=== PATIENT | female | born 1990 | race Caucasian/White ===

== ENCOUNTER 2019-08-19 19:37 | Emergency (ER) | payer BC, SELFPAY ==
[2019-08-19] VITALS (9 sets, daily range): BP systolic 101–112; BP diastolic 69–78; PULSE 104–135; RESP 18–20; TEMP 37.5–38.4; O2SAT 97–100; BMI 31.3
[2019-08-19] MEDS: acetaminophen 325 mg Tablet 650 MG PO (21:55)
[2019-08-19 22:34] LABS: Influenza A by IFA Negative (Negative); Influenza B by IFA Positive (Negative)
--- NOTE | 2019-08-19 22:39 | XRR_ITS ---
PROCEDURE INFORMATION: Exam: XR Chest, 1 View Exam date and time: 08/19/2019 10:39 PM Age: 28 years old Clinical indication: Cough and fever and shortness of breath; Additional info: Cough fever TECHNIQUE: Imaging protocol: XR of the chest Views: 1 view. COMPARISON: No relevant prior studies available. FINDINGS: Lungs: Tiny calcified granulomas. The lungs are otherwise clear. Pleural space: Unremarkable. No pleural effusion. No pneumothorax. Heart/Mediastinum: Unremarkable. No cardiomegaly. Bones/joints: Unremarkable. XR/XR chest 1V portable [id number] IMPRESSION: No acute findings.
--- NOTE | 2019-08-19 22:39 | ED_ITS ---
HPI - General Adult General: Chief complaint: General Medical Stated complaint: fever Time Seen by Provider: 08/19/19 22:34 Source: patient Mode of arrival: ambulatory Limitations: no limitations History of Present Illness: HPI narrative: Patient comes in today with complaints of fever and headache for the last 2 days. Children have also been ill with the flu type B. Patient did get started on Tamiflu today with 1 dose. Patient appears mildly ill. Patient appears in no pain. Associated symptoms: Reports headache(s) Review of Systems General: Reports: 10 or more systems reviewed and unremarkable except in HPI and below Const: Reports: fever Neuro: Reports: headache PFSH ED PFSH: Statuses (acute, chronic, etc) shown below reflect problem list status as previously entered and may not be historically accurate Social History (Updated 07/29/19 @ 14:39 by Shakira Millard RN) Smoking and tobacco status: never smoked Alcohol intake: never Additional social history: Well balanced diet Physical Exam Const: COMMON NORMALS: no apparent distress and oriented x3 GENERAL APPEARANCE: cooperative HENMT: COMMON NORMALS: normocephalic, external ears normal, EAC's normal, TM's normal bilaterally and external nose normal HEAD & SCALP: normal to inspection and normocephalic FACE & SINUS: normal facial exam NOSE: external nose normal GENERAL EAR: hearing not grossly impaired EXTERNAL EAR: Yes external ears normal EXTERNAL AUDITORY CANAL: EAC's normal TYMPANIC MEMBRANE: TM's normal bilaterally MOUTH: oral and palatal mucosa normal THROAT: posterior oropharynx normal Eye: COMMON NORMALS: PERRL and EOMs intact bilaterally PUPIL: Yes PERRL Neck/C-Spine: COMMON NORMALS: full ROM and no lymphadenopathy Lymph: LYMPHATIC: no lymphedema noted Chest: COMMONS NORMALS: inspection of chest normal and palpation of chest normal Resp: COMMON NORMALS: normal respiratory effort AUSCULTATION: diminished lung sounds Cardio: COMMON NORMALS: regular rate and regular rhythm RATE: regular rate RHYTHM: regular rhythm GI: COMMON NORMALS: normal to inspection, nondistended, normoactive bowel sounds and non-tender : COMMON NORMALS: Yes no CVA tenderness BLADDER/KIDNEY EXAM: Yes no CVA tenderness Back/Pelvis: COMMON NORMALS: no CVA tenderness and thoracic and lumbar spine normal to inspection Extremity: COMMON NORMALS: normal to inspection GENERAL: No edema Neuro: COMMON NORMALS: oriented x3, moves all extremities and no focal motor deficits Psych: COMMON NORMALS: mental status grossly normal and cooperative Skin: COMMON NORMALS: no rashes or lesions noted GENERAL SKIN EXAM: no rashes or lesions noted Course Vital Signs: Vital signs: Vital Signs Temperature 99.5 F 08/19/19 23:09 Pulse Rate 104 H 08/19/19 23:09 Respiratory Rate 20 H 08/19/19 23:09 Blood Pressure 101/69 08/19/19 23:09 Pulse Oximetry 97 08/19/19 23:09 MDM - General Adult MDM Narrative: Medical decision making narrative: Patient comes in due to fever and headache with malaise. Patient has been exposed to influenza type B with her children. Exam notes mild tachycardia and a fever of 101.2. Respirations were even lungs were clear to auscultation abdomen soft nontender. Patient did report episode of nausea and vomiting x1. Differential diagnoses influenza type B, upper respiratory infection, gastroenteritis, pneumonia. Chest x-ray was negative. Flu test was positive for type B flu. Further discussion with patient realized that Tamiflu she had taken and then she started vomiting after the use of the Tamiflu. Discussed that the Tamiflu probably was causing the adverse reaction of nausea and vomiting. Patient was medicated with ondansetron to help with her nausea and vomiting. Patient was also given a dose of dexamethasone to help with her cough and nausea. Patient reports underst anding of care plan can continue Tamiflu at her discretion with strong recommendations for fluids Tylenol and ibuprofen. Lab Data: Labs: Lab Results 08/19/19 Range/Units 21:56 Influenza Type A A g Negative (Negative) POC Influenza B Ag Positive H (Negative) Discharge Plan Discharge Patient Disposition: Home, Self-Care Clinical Impression: Influenza Condition: Stable Prescriptions: New ondansetron 4 mg tablet,disintegrating 4 mg PO Q8H PRN (Reason: nausea and vomiting) Qty: 10 RF: 0 Discharge Orders: Discharge Order (Routine); Ordered 08/19/19 Ordered By: Geraldo Lopez Referrals: [facility] [Other] Reyna Kerr [Primary Care Provider] - Discharge Diet: Advance as tolerated Discharge Activity: Increase activity as tolerated Patient Instructions: Influenza (ED) Activity Restrictions/Additional Instructions: Encourage plenty of fluids Acetaminophen and ibuprofen for pain and fever Continue Tamiflu as directed Use ondansetron for nausea and vomiting Follow-up with primary care Return to ER as needed Discharge Date/Time: 08/19/19 23:14 Coding Level of Care Code ED Stripper Color for Chg Fwd Exam Problem Focused
[2019-08-19] MEDS: dexamethasone 10 mg/mL INJ IM (23:04)
[2019-08-19] MEDS: ondansetron 4 MG Tablet PO (23:06)
== END 2019-08-19 23:14 | disposition home or self-care (01) ==
PROVIDERS: Emergency Provider Nurse Practitioner Family; PCP Nurse Practitioner Family
DX: J11.1 Influenza due to unidentified influenza virus with other respiratory manifestations (principal)
CPT/HCPCS: 71045; 87804; 96372; 99281; 99284; J1100; Q0162

== ENCOUNTER 2019-12-21 10:28 | Observation (INO) | payer BC, SELFPAY ==
[2019-12-19 10:32] VITALS: BMI 30.1
[2019-12-21] VITALS (19 sets, daily range): BP systolic 90–133; BP diastolic 58–89; PULSE 78–105; RESP 16–21; TEMP 36.2–36.9; O2SAT 93–100
--- NOTE | 2019-12-21 07:13 | W.PM.OPSUD ---
Surgery/Procedure H&P Update DATE OF PROCEDURE: December 21, 2019 DATE H&P PERFORMED: 12/19/19 H&P UPDATE INFORMATION: I have reviewed H&P completed within last 30 days, I have examined patient prior to procedure and No changes to prior documentation PREOP DIAGNOSIS: Abnormal uterine bleeding unresponsive to medical management, dysmenorrhea PLANNED PROCEDURE: Operation Date: 12/21/19 08:45 Proposed Procedures p Laparoscopic Assist Vaginal Hystectomy 59321/N93.9(Not Applicable) - eGrber Acevedo MD
--- NOTE | 2019-12-21 07:43 | ANES.PREANE2 ---
Pre-Anesthetic Assessment Pre-Anesthetic Assessment: Height/Weight: Height 1.6 m Weight 77.111 kg Temp Pulse Resp BP Pulse Ox 97.2 F L 88 18 114/82 99 12/21/19 07:23 12/21/19 07:23 12/21/19 07:23 12/21/19 07:23 12/21/19 07:23 Preop Diagnosis: Abnormal uterine bleeding unresponsive to medical management, dysmenorrhea Proposed Procedure: Operation Date: 12/21/19 08:45 Proposed Procedures p Laparoscopic Assist Vaginal Hystectomy 27894/N93.9(Not Applicable) - Gerber Acevedo MD Familial anesthetic complications: None Last intake: Intake Last Liquid Date 12/20/19 Last Liquid Time 20:30 Last Solid Date 12/20/19 Last Solid Time 20:30 Social: Social History: No alcohol and No tobacco Exam: Pre-Anes Outpt Exam: alert, oriented x 3, clear to auscultation bilaterally and regular rate & rhythm Airway: Cervical ROM: WNL MP: 1 Dentition: Full Anesthetic Plan: ASA status: 1 Anesthesia: General Risk of > 500 ml blood loss (7ml/kg in children): No PFSH Anesthesia PFSH: Family History Grandmother Hyperlipidemia maternal Hypertension maternal Stroke maternal Father Heart disease Leukemia Grandfather Heart disease maternal Colon cancer maternal Social History Smoking and tobacco status: never smoked Alcohol intake: never Additional social history: Well balanced diet Female Reproductive History: Date of last menstrual period: 10/30/19 Para: 3 Spontaneous abortions: Yes (3) Data Anesthesia Cardiac Studies: No Data to Display
[2019-12-21] MEDS: sodium chloride 0.9% 1,000 ML 30 ML IV (08:00)
[2019-12-21 08:19] LABS: Basophils % 0.4 %; Eosinophils # 0.1 10^3/uL (0.0-0.8); Eosinophils % 1.5 %; Hematocrit 38.3 % (37.0-47.0); Hemoglobin 12.6 g/dL (11.5-15.3); Lymphocytes # 1.9 10^3/uL (0.8-4.8); Lymphocytes % 20.2 %; Mean Corpuscular HGB Conc 32.9 g/dL (30.0-36.0); Mean Corpuscular Hemoglobin 27.3 pg (28.0-34.0); Mean Corpuscular Volume 82.9 fL (81-99); Mean Platelet Volume 9.7 fL (7.4-10.4); Monocytes # 0.6 10^3/uL (0.2-0.9); Monocytes % 5.7 %; Neutrophils # 6.9 10^3/uL (1.8-7.7); Neutrophils % 71.9 %; Nucleated Red Blood Cells % 0 %; Platelet Count 311 10^3/cmm (130-400); Red Blood Count 4.62 10^6/uL (4.1-5.3); Red Cell Distribution Width 12.8 % (12.1-15.1); White Blood Count 9.6 10^3/uL (4.0-10.0)
[2019-12-21 08:30] LABS: Add Urine Microscopic? YES; Bilirubin Urine Neg (NEGATIVE); Blood Urine 2+ (Negative); Glucose Urine UA Norm (Normal); Ketones Urine Negative (Negative); Leukocyte Esterase Urine Negative (Negative); Nitrate Urine Negative (Negative); Protein Urine Neg (Negative); Specific Gravity, Urine 1.025 (1.005-1.030); Urine Appearance Clear (CLEAR); Urine Color Yellow (Yellow); Urobilinogen Urine Norm (Negative)
[2019-12-21 08:31] LABS: Alanine Aminotransferase 20 U/L (0-33); Albumin Level 4.3 g/dL (3.5-5.2); Alkaline Phosphatase 77 IU/L (35-105); Anion Gap 16.9 (5-19); Aspartate Amino Transferase 20 U/L (0-32); Blood Urea Nitrogen 12 mg/dL (6-20); Calcium 9.4 mg/dL (8.5-10.5); Carbon Dioxide 24 mmol/L (22-29); Chloride 103 mmol/L (98-107); Globulin 2.9 g/dL (1.3-4.6); Glomerular Filtration Rate 84.8 mL/min (90-130); Glucose 119 mg/dL (65-115); Osmolality Calculated 287 mOsm/kg (285-295); Potassium 3.9 mmol/L (3.5-5.1); Sodium 140 mmol/L (136-145); Total Bilirubin 0.3 mg/dL (0.15-1.2); Total Protein 7.2 g/dL (6.6-8.7)
[2019-12-21 08:32] LABS: HCG Qualitative Urine. Negative (Negative)
[2019-12-21 08:35] LABS: Add Urine Culture? No; Bacteria Urine TRACE; Mucus Urine 2+; Squamous Epithelial Cell Urine 0-4 (0-5)
--- NOTE | 2019-12-21 10:22 | P.OP_ITS ---
Operative Report Date of procedure: December 21, 2019 Pre-op Diagnosis: Abnormal uterine bleeding unresponsive to medical management, dysmenorrhea Post-op diagnosis: same Procedure Done: Laparoscopic-assisted vaginal hysterectomy Specimens removed/disposition: Uterus Surgeon: Gerber Acevedo Anesthesia: General Estimated blood loss (mL): 200 IV fluids (mL): 900 Urine output (mL): 200 Condition: stable Disposition: PACU Brief History: 28-year-old female with abnormal uterine bleeding unresponsive to medical management and chronic pelvic pain Procedure: After discussing informed consent again, the patient was taken to the operating room where general anesthesia was administered. She was placed in the dorsal lithotomy position in low stirrups and prepped and draped in sterile fashion. Pre-Procedure Time-Out verifying the correct patient identity, correct procedure verified with consent, correct site and side, correct patient position, availability of correct implants and any special equipment or requirements was performed and acknowledge by the OR team. After the initial preparation, the procedure commenced at the vagina. With a Bookwalter vaginal retractor was place to visualize the cervix; the anterior and posterior lips of the cervix were separately grasped and clamped with edel tooth tenaculum. The cervix was then dilated to a #6 hegar dilator and a uterine manipulator within the uterine cavity for manipulation purposes being careful not to puncture the uterus. A Mcbride catheter was placed in the erika dder. Attention was then turned to the abdomen. The umbilical region was infiltrated with 0.5% Marcaine with epinephrine. Following infiltration with Marcaine, an intraumbilical incision was made and the Verres needle was gently advanced taking care to feel for the typical sensation of penetrating the peritoneum. With CO2 infiltration, an opening pressure of 5 mmHg was noted, and following this, a pneumoperitoneum of 15 mmHg was created. A 5 mm Optiview trocar was then passed through the same incision under direct visualization. Trocar was removed and the laparoscope was then inserted through the trocar sleeve. Visualization of the peritoneal cavity was then obtained and a brief inspection did not reveal any signs of complications from entry. Under direct observation, a second incision was made 3 cm above the symphysis pubis, and a 5 mm trocar and sleeve were admitted into the abdomen under direct, laparoscopic visualization, without complication. Once the placement of the ports was complete, the actual laparoscopic procedure began. Beginning on the right side and distally along the length of the fallopian tube, the mesosalpinx was exposed by lifting the tube/ovary up towards the anterior abdominal wall. The mesosalpinx was then sequentially, clamped, ligated, and cut using the ENSEAL device working alongside the length of the tube and towards the cornua. Once the level of the cornua was reached the tube was cut, removed through the port, and attention was then turned to the other side. The same process was repeated on the left, sequentially clamping, sealing/ligating, and cutting the mesosalpinx being sure to not injure the adjacent ovarian tissue or other surrounding structures. The round ligament was then clamped, sealed/ligated and cut with the ENSEAL device. Following this, the anterior leaf of the broad ligament was then taken down on the left side, dissecting down towards the peritoneal reflection at the base of the bladder and adjacent to the cervix. The same process was then repeated on the left side such that both sides met and the anterior leaflet had been appropriately skeletonized. To ensure excellent hemostasis prior to further manipulation, the pedicles of the cardinal ligament was then clamped sealed/ligated and divided on each side using the ENSEAL device. Attention was then turned to the vaginal aspect of the surgery. The Mcbride catheter was clamped. A Bookwalter vaginal retractor was placed in the vagina and the uterine manipulator was removed. The tenaculum was repositioned anteriorly and posteriorly. A circumferential incision was made at the cervical vaginal reflection using cautery. This was undermined first anteriorly and a colpotomy made without difficulty. This was then repeated posteriorly and a similar colpotomy made. Amanda retractors were then placed into each of these incisions. Beginning first on the patient's left, the uterosacral and cardinal ligament was clamped, sealed, divided, and suture ligated. Two bites were required to reach the previous dissection margin of the left side. The same process was then repeated on the patient's right hand side, at which point, the specimen was completely freed. Once the sutures had been placed and the pedicles secured, the uterus was removed transvaginally without difficulty. All pedicles were inspected and hemostasis was confirmed. The vaginal vault was then closed with a running locking Vicryl suture, securing first the posterior edge of the cuff followed by the anterior edge. Good hemostasis was obtained. Two [id number] sutures were then placed across the vaginal vault to close it. Once these had been tied off, all sutures were trimmed; a wet sponge was placed in the vagina to pack it off while attention was again turned back to the abdomen. All instruments were removed from the vagina at this time. Using the laparoscopic irrigation device, the abdomen was carefully irrigated and inspected to ensure complete hemostasis. She was given Indigo carmine IV. Once the entire abdomen was inspected, the water was suctioned and the instruments carefully removed. The ports were then removed under direct visualization being sure to note hemostasis of the port sites on removal. The incisions were then closed with interrupted Monocryl sutures and Dermabond. Then the Mcbride catheter was removed and cystoscope was inserted. The bladder was filled with sterile water. Complete evaluation of the bladder mucosa was performed noting no lacerations, dimpling, tears, bleeding of the mucosa or muscular layers. Both ureteral orifices were identified. Prompt excretion of urine from both ureteral orifices was noted. Cystoscope was withdrawn. The patient tolerated the procedure well, anesthesia reversed, and the patient was taken to the recovery room in stable condition. All sponges, instruments, and sharps were counted and correct x 3.
[2019-12-21] MEDS: fentaNYL 50 mcg/mL INJ 2mL IVP ×2 (10:46→10:51)
[2019-12-21] MEDS: dextrose 5%-lactated ringers 1,000 ML 125 ML IV ×3 (11:52→20:46)
[2019-12-21] MEDS: ketorolac 30 mg/mL INJ IVP ×3 (11:55→23:08)
[2019-12-21] MEDS: HYDROcodone-acetaminophen 5-325 mg Tablet PO ×2 (13:50→19:31)
[2019-12-21] MEDS: docusate sodium 100 mg Capsule PO (17:01)
--- NOTE | 2019-12-21 18:04 | PC.NURSE ---
Patient ambulated to restroom 3 times since I have acquired patient at 1515. She has set up in chair for dinner. Will continue to monitor. MALOU, KENNY
[2019-12-22 00:49] VITALS: BP 91/58; PULSE 84; RESP 18; TEMP 36.9; O2SAT 98
[2019-12-22] MEDS: HYDROcodone-acetaminophen 5-325 mg Tablet PO ×3 (01:04→10:54)
[2019-12-22 01:08] VITALS: BP 94/52
[2019-12-22] MEDS: dextrose 5%-lactated ringers 1,000 ML 125 ML IV (03:57)
[2019-12-22 04:19] VITALS: BP 98/50; PULSE 78; RESP 18; TEMP 36.7; O2SAT 98
[2019-12-22] MEDS: ketorolac 30 mg/mL INJ IVP (05:36)
[2019-12-22 05:56] LABS: Hematocrit 31.7 % (37.0-47.0); Mean Corpuscular HGB Conc 31.5 g/dL (30.0-36.0); Mean Corpuscular Hemoglobin 26.8 pg (28.0-34.0); Mean Platelet Volume 9.8 fL (7.4-10.4); Platelet Count 274 10^3/cmm (130-400); Red Blood Count 3.73 10^6/uL (4.1-5.3); Red Cell Distribution Width 13.1 % (12.1-15.1); White Blood Count 14.7 10^3/uL (4.0-10.0)
--- NOTE | 2019-12-22 06:32 | PC.NURSE ---
SHIFT SUMMARY Has had a good night. Has had some c/o cramping/pressure in lower abdomen but has been well relieved with the scheduled IV Toradol and po Hydrocodone. Says warm heating pad to abdomen feels good. Surgical stab wounds to umbilicus and medial lower pelvic area are clean and dry. Open to air and closed with dermabond. Says occ spotting when she wipes with urination. Is urinating well and ambulating well. IV infusing at 125ml/hr rate. Is very pleasant and hoping to go home today
[2019-12-22 07:25] VITALS: BP 88/54; PULSE 76; RESP 16; TEMP 36.8; O2SAT 99
[2019-12-22] MEDS: docusate sodium 100 mg Capsule PO (08:16)
--- NOTE | 2019-12-22 10:16 | PC.CHAP ---
Pastoral Care Encounter/Spiritual Assessment Type of Contact [] Declined frog farmer visit [] Patient/Family/Request visit [] Outpatient visit [] Follow-up visit [] Physician referral [] Code/Alert [x] Routine visit [] Staff referral [] Actively dying [] Patient sleeping [] Family support [] [] Out of room [] Palliative care [] [] Receiving care in room [] Pre-surgical visit [] Trauma [] Long length of stay [] ICU visit [] Other: Relational/Emotional Strength [x] Patient feels connected with others/family/visitors/staff [] Distress [] Loneliness/isolation [] Abandonment Spirituality of Patient [x] Person of Batsheva [] Attends Rastafarian of their Batsheva [x] Believes in Prayer [x] Reads Bible or Alevism materials [] There are Spiritual issues to be addressed Quilting Machine Helper Interventions [x] Prayer [x] Active listening [x] Non-anxious presence [x] Spiritual/emotional support [] Crisis/trauma care [x] Spiritual counseling [] Bereavement support [] Provided bereavement packet [] Provided Bible/devotional materials [] Provided toy/stuffed animal, coloring book to patient or family member [] Provided Communion [] Anointing/Paradise [] Salvation [x] Completed spiritual assessment [] Other: Impact on Illness or Injury [] Angry [] Fearful [] Anxious [] Often cries [] Exhaustion [] Unable to work [] Unable to attend caodaism [] Unable to walk/stand [] Unable to read [] Unable to drive [] Unable to eat/drink [] Unable to sleep [] Unable to be with family [] Patient intubated [x] Other: Summary Patient is a professed follower of Damon Fitzpatrick, she has three small boys and is being released today. Time spent with patient 10 minutes
--- NOTE | 2019-12-22 10:24 | P.DS_ITS ---
Discharge Providers [facility] Date of Admission: 12/21/19 10:28 Date of Discharge: 12/22/19 Attending Provider at Admission: Gerber Acevedo MD Attending Provider at Discharge: Gerber Acevedo MD Primary Care Provider: Reyna Kerr Diagnoses at Discharge Discharge Diagnosis (1) Abnormal uterine bleeding (AUB): Status: Acute (2) Chronic pelvic pain in female: Status: Acute Reason for Visit Reason for Visit: HYSTERECTOMY Hospital Course Hospital Course: 28-year-old female with a history of abnormal uterine bleeding unresponsive to medical management and chronic pelvic pain, admitted for laparoscopic-assisted vaginal hysterectomy. The procedure was performed without complications. Overnight observation was uneventful. She is afebrile, hemodynamically stable, tolerating diet well and ambulating without difficulty. Physical Exam Narrative: EXAM NARRATIVE: GA: Alert and oriented ?3. HEENT: WNL. Heart: Regular rate and rhythm. Lungs: Clear to auscultation bilaterally. Abdomen: Bowel sounds present, nontender, minimal tenderness, incision clean and dry, no redness, pain or edema. CONSUMER EDUCATION SPECIALIST: No bleeding. Extremities: No edema, no cyanosis, no calves pain. Urinary Catheter Management^: Mcbride: Cath Placed During This Visit: yes, but has since been removed by the nurse Urinary Catheter Date of Insertion: 12/21/19 Urinary Catheter Time of Insertion: 08:00 Date Urinary Catheter Removed: 12/21/19 Time Urinary Catheter Discontinued: 10:15 Discharge Data Data Completed and Pending: Pending at discharge Category Date Time Status ES surgery / GI i mages Routine Exams 12/21/19 06:44 Taken Pathology: Surgic al [PTH] Routine Pth 12/21/19 10:22 Received Labs from last 24 hours 12/22/19 05:20 WBC 14.7 H RBC 3.73 L Hgb 10.0 L Hct 31.7 L MCV 85.0 MCH 26.8 L MCHC 31.5 RDW 13.1 Plt Count 274 MPV 9.8 Laboratory Tests 12/21/19 07:36 WBC 9.6 Hgb 12.6 Hct 38.3 Plt Count 311 Procedures Performed: Laparoscopic assisted vaginal hysterectomy Vitals: Last Vital Signs Temp 98.3 F 12/22/19 07:25 Pulse 76 12/22/19 07:25 Resp 16 12/22/19 07:25 BP 88/54 12/22/19 07:25 Pulse Ox 99 12/22/19 07:25 Discharge Plan Discharge Patient Disposition: Home, Self-Care Condition: Stable Prescriptions: [place] 5-325 mg tablet 1 tab PO Q4H PRN (Reason: pain) Qty: 30 RF: 0 ibuprofen 800 mg tablet 800 mg PO TID PRN (Reason: pain) Qty: 60 RF: 0 Continued amitriptyline 10 mg tablet 10 mg PO .at bedtime RF: 0 Discharge Orders: Discharge Order (Routine); Ordered 12/22/19 Ordered By: Gerber Acevedo Referrals: Gerber Acevedo MD [Physician] - 01/03/20 11:00 am (Status post laparoscopic- assisted vaginal hysterectomy YOU HAVE APPOINTMENT ON JANUARY 02 AT 11:00 AND ON JANUARY 30 AT 7:45) Discharge Diet: Regular Discharge Activity: Increase activity as tolerated Patient Instructions: Laparoscopically Assisted Vaginal Hysterectomy (DC) Activity Restrictions/Additional Instructions: Pelvic rest for 6 weeks (no sex, no tampons, no vaginal douches). Return to the emergency room if any fever, increased bleeding or pain. Discharge Attestations [facility] Time Spent in Discharge Care*: greater than 30 min Specific Discharge Activities: Specific discharge activities: educating patient Coding Level of Care Code Acute Adult Family Home Program Manager for [facility] Fwd Diagnoses Abnormal uterine bleeding (AUB) N93.9 Chronic pelvic pain in female R10.2; G89.29
[2019-12-22 11:30] VITALS: BP 88/54; PULSE 76; RESP 16; TEMP 36.8; O2SAT 99
== END 2019-12-22 11:31 | disposition home or self-care (01) ==
LOC: MEDSURG 10:28
PROVIDERS: Anesthesiology; Admitting Provider Obstetrics & Gynecology; PCP Nurse Practitioner Family; Visit Provider Obstetrics & Gynecology
PROC: 0UT9FZZ Resection of Uterus, Via Natural or Artificial Opening With Percutaneous Endoscopic Assistance (ICD-10-PCS; CPT 58550; principal; 2019-12-21 08:45)
DX: N93.9 Abnormal uterine and vaginal bleeding, unspecified (principal); N94.6 Dysmenorrhea, unspecified; G89.29 Other chronic pain; R10.2 Pelvic and perineal pain
CPT/HCPCS: 58550; 12345; 36415; 80053; 81001; 81025; 85025; 85027; 86850; 86900; 88307; 96375; G0378; J0131; J0690; J1100; J1885; J2001; J2250; J2405; J2704; J3010; J3490; J7030

== ENCOUNTER 2020-02-14 07:39 | Outpatient (CLI) | payer BC, SELFPAY ==
--- NOTE | 2020-02-14 07:45 | MR_ITS ---
WS: [id number] MRI LUMBAR SPINE NONCONTRAST TECHNIQUE: Sagittal T1, T2 and STIR imaging. Axial T1 and T2 imaging. CLINICAL INFORMATION: PAIN OF BACK AND LLE COMPARISON: None. FINDINGS: Mild lumbar curve. No acute compression. No high-grade central canal stenosis. L1-L2: Normal. L2-L3: Normal. L3-L4: Mild annular bulging. Mild left foraminal narrowing. Mild facet arthropathy. Spinal canal and right foramen are patent. L4-L5: Mild annular bulging with narrowing of the left greater than right subarticular recess. Encroa chment traversing left greater than right L5 nerve roots. Foramen are patent. Mild/moderate facet art hropathy. L5-S1: Mild annular bulging. Mild to moderate facet arthropathy. Spinal canal and foramen are patent. Visualized pelvic bony structures: Normal. Paravertebral soft tissues: Normal. MR/MR lumbar spine wo con* [id number] IMPRESSION: 1. Mild lumbar curve. No acute compression. No high-grade central canal stenos is. 2. Tiny left foraminal protrusion L3-4 with mild left foraminal narrowing. 3. Annular bulging L4-5 with slight narrowing of the left greater than right s ubarticular recess and encroachment traversing left L5 nerve root. 4. Mild to moderate facet arthropathy L3-L5.
== END 2020-02-14 07:40 | disposition home or self-care (01) ==
LOC: RADSHAW 07:44
PROVIDERS: PCP Nurse Practitioner Family; Visit Provider Nurse Practitioner Family
DX: M79.605 Pain in left leg (principal); M47.816 Spondylosis without myelopathy or radiculopathy, lumbar region
CPT/HCPCS: 72148

== ENCOUNTER 2020-03-02 23:13 | Emergency (ER) | payer BC, SELFPAY ==
[2020-03-02 23:34] VITALS: BP 119/74; PULSE 82; RESP 17; TEMP 36.6; O2SAT 98; BMI 30.1
[2020-03-03 00:55] VITALS: BP 131/76; PULSE 85; RESP 17; O2SAT 100
--- NOTE | 2020-03-03 01:01 | XRR_ITS ---
PROCEDURE INFORMATION: Exam: XR Right Forearm Exam date and time: 03/03/2020 1:02 AM Age: 29 years old Clinical indication: Injury or trauma; Injury history: Dog bite; Initial encounter; Arm, lower; Right TECHNIQUE: Imaging protocol: XR Right forearm. Views: 2 views. COMPARISON: No relevant prior studies available. FINDINGS: Bones/joints: No fracture or dislocation. Soft tissues: Edema/bruising in the soft tissues in the distal forearm along the radius. XR/XR forearm RT 2V [id number] IMPRESSION: Distal forearm soft tissue injury. No fracture.
--- NOTE | 2020-03-03 01:43 | W.ED.ANIMALB ---
HPI - Animal Bite General: Chief Complaint: Animal Bite Stated Complaint: Animal Bite Time Seen by Provider: 03/03/20 01:01 History of Present Illness: HPI narrative: Patient is a 29-year-old female comes to the ED with a dog bite. Injury occurred just prior to arrival. Patient's dog bit her right forearm. Dog just had puppies and patient was going to grab 1 of the puppies and the dog bit her. Patient says dog is not an aggressive/violent dog in was only doing that to protect her new puppies. Dog is fully vaccinated and has had its rabies shot. Associated symptoms: Deny chills, fever(s) or headache(s) Review of Systems Const: Denies: fever(s), chills or fatigue Eyes: Denies: change in vision or eye discomfort ENMT: Denies: throat pain, odynophagia, nasal discharge or nasal congestion Card: Denies: chest pain, palpitations, edema, swelling of feet/ankles, dyspnea on exertion or orthopnea Resp: Denies: dyspnea, productive cough or non-productive cough GI: Denies: abdominal pain, nausea, vomiting, diarrhea, constipation or hematochezia : Denies: flank pain, dysuria or hematuria Musc: Denies: neck pain, back pain or extremity swelling Skin/Breast: Reports: new lesions (2 small puncture wounds on right forearm.); Denies: rash Neuro: Denies: headache(s), numbness in extremities or weakness in extremities PFS ED PFSH: Family History Grandmother Hyperlipidemia maternal Hypertension maternal Stroke maternal Father Heart disease Leukemia Grandfather Heart disease maternal Colon cancer maternal Social History Smoking and tobacco status: never smoked Alcohol intake: current Alcohol intake frequency: holidays/special occasions only Alcohol type: wine and hard liquor Female Reproductive History: Date of last menstrual period: 10/30/19 Para: 3 Spontaneous abortions: Yes (3) Physical Exam Const: COMMON NORMALS: no acute distress, patient oriented x3, healthy appearing and alert GENERAL APPEARANCE: cooperative and comfortable HENMT: COMMON NORMALS: normocephalic HEAD & SCALP: normocephalic MOUTH: Normal oral and palatal mucosa present THROAT: posterior oropharynx normal and uvula midline Neck/C-Spine: COMMON NORMALS: supple GENERAL: Yes normal visual inspection Resp: COMMON NORMALS: normal respiratory effort, No retractions, No use of accessory muscles and clear to auscultation bilaterally AUSCULTATION: clear to auscultation bilaterally Cardio: COMMON NORMALS: regular rate, regular rhythm, S1 normal heart sound present, S2 normal heart sound present, No gallops present (Cardio), No clicks present (Cardio), No murmurs present (Cardio) and Peripheral pulses 2+ throughout RATE: regular rate RHYTHM: regular rhythm HEART SOUNDS: S1 normal heart sound present and S2 normal heart sound present PERIPHERAL PULSES: Peripheral pulses 2+ throughout GI: COMMON NORMALS: Normal to inspection, nondistended, normoactive bowel sounds present, Soft to palpation, non-tender and no masses PALPATION: Yes Soft to palpation : COMMON NORMALS: Yes no CVA tenderness BLADDER/KIDNEY EXAM: Yes no CVA tenderness Back/Pelvis: COMMON NORMALS: no CVA tenderness Extremity: NARRATIVE EXTREMITY EXAM: Patient has 2 small puncture wounds on right forearm. They are not actively bleeding. There is some ecchymosis and mild swelling around puncture wounds. No warmth or signs of infection. Mild tenderness upon palpation. GENERAL: Yes normal exam except as noted Neuro: COMMON NORMALS: patient oriented x3 and moves all extremities SENSORIUM/ORIENTATION: Yes alert Skin: GENERAL SKIN EXAM: dry skin TRAUMA: puncture (2 small puncture wounds on right forearm with some surrounding ecchymosis and mild swelling. No warmth or signs of infection seen.) Course Vital Signs: Vital signs: Vital Signs Temperature 98 F 03/02/20 23:34 Pulse Rate 85 03/03/20 00:55 Respiratory Rate 17 03/03/20 00:55 Blood Pressure 131/76 03/03/20 00:55 Pulse Oximetry 100 03/03/20 00:55 MDM - Animal Bite MDM Narrative: Medical decision making narrative: Patient is a 29-year-old female comes to the ED with dog bite. Patient was bit by her family dog after trying to grab 1 of the dogs new puppies. Her dog is fully vaccinated and is vaccinated against rabies as well. Exam shows with 2 very small puncture wounds with some ecchymosis around them. X-ray right forearm showed no acute fractures or foreign body seen. Patient was discharged and given a prescription of Augmentin for prophylactic treatment of dog bite. Patient told to follow-up with PCP in 7 to 10 days. She was informed about signs of infection and returning to ED precautions given. Patient understood and agreed with plan. Imaging Data^: Xray Ortho: Attestation: I personally reviewed and interpreted this imaging study as follows: My impression: Right forearm x-ray showed no acute fractures or foreign body seen. Discharge Plan Discharge Patient Disposition: Home Clinical Impression: Puncture wound Dog bite Qualifiers: Encounter type: initial encounter Qualified Code(s): W54.0XXA - Bitten by dog, initial encounter Condition: Stable Prescriptions: New Augmentin 500-125 mg tablet 1 tab PO BID 5 Days Qty: 10 RF: 0 No Action amitriptyline 10 mg tablet 10 mg PO .at bedtime RF: 0 Discharge Orders: Discharge Order (Routine); Ordered 03/03/20 Ordered By: Philip Hylton Referrals: Reyna Kerr FNP [Primary Care Provider] - Discharge Diet: Regular Discharge Activity: Resume usual activity Patient Instructions: Animal Bite (ED), Puncture Wound (ED) Activity Restrictions/Additional Instructions: Follow-up with medical provider as directed in 7-10 days. Take antibiotic as prescribed. Take Tylenol or ibuprofen for pain. Apply ice on forearm to help with swelling. Clean and re-bandage puncture wounds daily. Use triple antibiotic ointment on wounds as well. Return to the ER or your medical provider if condition worsens. Please read and understand discharge instructions. If any questions, please ask. Coding Level of Care Code ED Founder President And Ceo for [facility] Exam Comprehensive
[2020-03-03 02:50] VITALS: BP 122/77; PULSE 64; RESP 14; TEMP 36.8; O2SAT 99
[2020-03-03] MEDS: amoxicillin-clav 500-125 mg Tablet 1 TAB PO (03:23)
== END 2020-03-03 03:24 | disposition home or self-care (01) ==
PROVIDERS: Emergency Provider Emergency Medicine; PCP Nurse Practitioner Family
DX: S51.851A Open bite of right forearm, initial encounter (principal); W54.0XXA Bitten by dog, initial encounter
CPT/HCPCS: 12345; 73090; 99281; 99283

== ENCOUNTER → 2020-04-06 11:01 | Outpatient (BNVA) | payer BC, SELFPAY | PROVIDERS: PCP Nurse Practitioner Family; Visit Provider Specialist | DX: Q65.89 Other specified congenital deformities of hip (principal); G62.9 Polyneuropathy, unspecified; M51.9 Unspecified thoracic, thoracolumbar and lumbosacral intervertebral disc disorder | CPT/HCPCS: 64450; 95886; 95908; 95909; 99203 ==

== ENCOUNTER → 2020-04-23 08:32 | Outpatient (BNVA) | payer BC, SELFPAY | PROVIDERS: PCP Nurse Practitioner Family; Visit Provider Specialist | DX: Q65.89 Other specified congenital deformities of hip (principal); G57.12 Meralgia paresthetica, left lower limb; G43.711 Chronic migraine without aura, intractable, with status migrainosus | CPT/HCPCS: 64450; 99213; J1030; J3490 ==

== ENCOUNTER → 2020-05-31 12:30 | Outpatient (BNVA) | payer BC, SELFPAY | PROVIDERS: PCP Nurse Practitioner Family; Visit Provider Specialist | DX: G43.711 Chronic migraine without aura, intractable, with status migrainosus (principal); G57.12 Meralgia paresthetica, left lower limb; G62.9 Polyneuropathy, unspecified | CPT/HCPCS: 64450; 99213; J1030; J3490 ==

== ENCOUNTER → 2020-07-05 08:20 | Outpatient (BNVA) | payer BC, SELFPAY | PROVIDERS: PCP Nurse Practitioner Family; Visit Provider Specialist | DX: G57.12 Meralgia paresthetica, left lower limb (principal); G43.711 Chronic migraine without aura, intractable, with status migrainosus | CPT/HCPCS: 64450; 99213 ==

== ENCOUNTER → 2020-07-10 08:07 | Outpatient (BNVA) | payer BC, SELFPAY | PROVIDERS: PCP Nurse Practitioner Family; Visit Provider Specialist | DX: G43.711 Chronic migraine without aura, intractable, with status migrainosus; Z71.89 Other specified counseling; G57.12 Meralgia paresthetica, left lower limb | CPT/HCPCS: 20552; 64450; 99212; J3490 ==

== ENCOUNTER → 2020-07-23 10:44 | Outpatient (BNVA) | payer BC, SELFPAY | PROVIDERS: PCP Nurse Practitioner Family; Visit Provider Specialist | DX: G57.12 Meralgia paresthetica, left lower limb (principal); M51.9 Unspecified thoracic, thoracolumbar and lumbosacral intervertebral disc disorder; G62.9 Polyneuropathy, unspecified; G43.711 Chronic migraine without aura, intractable, with status migrainosus | CPT/HCPCS: 64450; G0463; J3490 ==

== ENCOUNTER → 2020-08-02 09:20 | Outpatient (BNVA) | payer BC, SELFPAY | PROVIDERS: PCP Nurse Practitioner Family; Visit Provider Specialist | DX: G43.711 Chronic migraine without aura, intractable, with status migrainosus (principal); G83.34 Monoplegia, unspecified affecting left nondominant side | CPT/HCPCS: 64615; J0585 ==

== ENCOUNTER → 2020-08-23 10:50 | Outpatient (BNVA) | payer BC, SELFPAY | PROVIDERS: PCP Nurse Practitioner Family; Visit Provider Specialist | DX: G57.12 Meralgia paresthetica, left lower limb (principal) | CPT/HCPCS: 64450; G0463; J1030; J3490 ==

== ENCOUNTER → 2020-08-30 09:11 | Outpatient (BNVA) | payer BC, SELFPAY | PROVIDERS: PCP Nurse Practitioner Family; Visit Provider Specialist | DX: G57.12 Meralgia paresthetica, left lower limb (principal); G83.34 Monoplegia, unspecified affecting left nondominant side; G62.9 Polyneuropathy, unspecified; G43.711 Chronic migraine without aura, intractable, with status migrainosus | CPT/HCPCS: 20550; 20552; 99213; J3490 ==

== ENCOUNTER 2020-09-12 07:41 | Outpatient (CLI) | payer BC, SELFPAY ==
--- NOTE | 2020-09-12 07:49 | MM_ITS ---
WS: [id number] DIAGNOSTIC RIGHT DIGITAL MAMMOGRAM WITH CAD RIGHT breast ultrasound, limited HISTORY: BREAST LUMP RT SIDE 6 O'CLOCK, 29-year-old. COMPARISON: None available. Technique: CC, MLO and ML views. Spot compression RIGHT CC. Breast composition: The breasts are heterogeneously dense, which may obscure small masses. Marker is placed over the palpable nodule at 9:00. No underlying abnormality is detected. Slightly enlarged ly mph nodes in the axilla with normal fatty han. No nipple retraction. RIGHT breast ultrasound, limited. At 7:00, 2 cm from the nipple is a hypoechoic nodule measuring 5 x 5 x 3 mm. This corresponds to the palpable abnormality. There is minimal through transmission. This is a well-circumscribed nodule may represent a small ductal cyst. Otherwise dense fibroglandular tissue. Benign appearing RIGHT axillary lymph nodes with normal fatty han. MM/[place] [id number] IMPRESSION: BI-RADS: 3-Probably Benign FOLLOW UP: 6 Month Follow-up Recommend 6 month follow-up limited RIGHT breast ultrasound at 7:00. Recommend reevaluation of probable benign nodule which corresponds to the palpable nodule .
== END 2020-09-12 07:42 | disposition home or self-care (01) ==
LOC: RADSHAW 07:44
PROVIDERS: PCP Nurse Practitioner Family; Visit Provider Nurse Practitioner Family
DX: N63.15 Unspecified lump in the right breast, overlapping quadrants (principal)
CPT/HCPCS: 76642; 77065

== ENCOUNTER → 2020-11-08 08:01 | Outpatient (BNVA) | payer BC, SELFPAY | PROVIDERS: PCP Nurse Practitioner Family; Visit Provider Specialist | DX: G43.709 Chronic migraine without aura, not intractable, without status migrainosus (principal); G57.12 Meralgia paresthetica, left lower limb; G62.9 Polyneuropathy, unspecified | CPT/HCPCS: 64615; J0585 ==

== ENCOUNTER → 2021-01-31 09:39 | Outpatient (BNVA) | payer BC, SELFPAY | PROVIDERS: PCP Nurse Practitioner Family; Visit Provider Specialist | DX: G43.711 Chronic migraine without aura, intractable, with status migrainosus (principal); G57.10 Meralgia paresthetica, unspecified lower limb; G62.9 Polyneuropathy, unspecified; G83.34 Monoplegia, unspecified affecting left nondominant side; Z71.89 Other specified counseling | CPT/HCPCS: 64615; J0585 ==

== ENCOUNTER 2021-03-06 08:39 | Outpatient (CLI) | payer BC, SELFPAY ==
--- NOTE | 2021-03-06 08:49 | US_ITS ---
WS: [id number] ULTRASOUND BREAST RIGHT TECHNIQUE: Ultrasound right breast focused area of concern. CLINICAL INFORMATION: BREAST LUMP RIGHT SIDE 7 O'CLOCK POSITION COMPARISON: September 12, 2020 FINDINGS: Ultrasound right breast area of concern, patient directed 7:00-9:00 position and right axilla. Underl tone dense parenchymal tissue 7 to 9:00 position. No cystic or solid lesions. Previously described sm all hypoechoic lesion at the 7:00 position no longer visualized. Normal-appearing lymph node in the right axilla with preserved fatty hilum. No suspicious findings. N o lesions to target for biopsy. US/US breast RT limited* [id number] IMPRESSION: BI-RADS 2 benign RECOMMEND ANNUAL SCREENING MAMMOGRAPHY AGE 39
== END 2021-03-06 08:40 | disposition home or self-care (01) ==
LOC: RAD 08:44
PROVIDERS: PCP Nurse Practitioner Family; Visit Provider Nurse Practitioner Family
DX: N63.24 Unspecified lump in the left breast, lower inner quadrant (principal)
CPT/HCPCS: 76642

== ENCOUNTER → 2021-04-25 13:48 | Outpatient (BNVA) | payer BC, SELFPAY | PROVIDERS: PCP Nurse Practitioner Family; Visit Provider Specialist | DX: G43.711 Chronic migraine without aura, intractable, with status migrainosus (principal); G83.34 Monoplegia, unspecified affecting left nondominant side | CPT/HCPCS: 64615; J0585 ==

== ENCOUNTER → 2021-05-13 13:38 | Outpatient (BNVA) | payer BC, SELFPAY | PROVIDERS: PCP Nurse Practitioner Family; Visit Provider Obstetrics & Gynecology | DX: R10.32 Left lower quadrant pain (principal); N94.10 Unspecified dyspareunia | CPT/HCPCS: 76830 ==

== ENCOUNTER → 2021-06-06 15:13 | Outpatient (BNVA) | payer SELFPAY | PROVIDERS: PCP Nurse Practitioner Family; Referring Provider Nurse Practitioner Family; Visit Provider Podiatrist Foot & Ankle Surgery | DX: M25.572 Pain in left ankle and joints of left foot (principal) | CPT/HCPCS: 73610 ==

== ENCOUNTER 2022-08-01 07:45 | Outpatient (CLI) | payer BC, SELFPAY ==
--- NOTE | 2022-08-01 08:02 | US_ITS ---
WS: [id number] ULTRASOUND RIGHT BREAST, complete HISTORY: BREAST PAIN COMPARISON: 03/06/2021 TECHNIQUE: 2-D and Doppler. 2 small cysts within the RIGHT breast at 7:00, 3 cm from the nipple largest measuring 3 x 4 x 3 mm. N o solid masses or increased vascularity. No distortion or skin thickening. US/US breast RT limited* [id number] IMPRESSION: BI-RADS: 2-Benign FOLLOW-UP: Age 39
== END 2022-08-01 07:46 | disposition home or self-care (01) ==
PROVIDERS: PCP Nurse Practitioner Family; Visit Provider Nurse Practitioner Family
DX: N64.4 Mastodynia (principal)
CPT/HCPCS: 76642

== ENCOUNTER → 2023-02-28 16:38 | Outpatient (BNVA) | payer BC, SELFPAY | PROVIDERS: PCP Nurse Practitioner Family; Visit Provider Emergency Medicine | DX: R39.9 Unspecified symptoms and signs involving the genitourinary system (principal); N10 Acute pyelonephritis | CPT/HCPCS: 81000 ==

== ENCOUNTER 2023-05-11 11:54 | Emergency (ER) | payer BC, SELFPAY ==
--- NOTE | 2023-05-11 11:55 | ECG_ITS ---
[facility] Test Date: 2023-05-11 Pat Name: Josefa Mclean Department: Room: Gender: Female Help Desk Support Specialist: : 1990 Requested By: Shayla Polk Order Number: [id number] Porfirio MD: Ysabel Foreman M.D. Measurements Intervals [place] Rate: 83 P: 45 AK: 163 QRS: 27 QRSD: 94 T: 35 QT: 376 QTc: 442 Interpretive Statements SINUS RHYTHM No previous ECG available for comparison Electronically Signed On 05-11-2023 12:41:53 CDT by Ysabel Foreman M.D. [email or web address]
--- NOTE | 2023-05-11 11:55 | XR_ITS ---
WS: [id number] Exam: XR chest 1V portable [id number] Date/Time of Exam: 05/11/2023 11:58 AM Reason For Exam: sob Comparison 08/19/2019. Findings: The lungs are clear and fully expanded. Costophrenic angles are sharp. No infiltrates. Bronchovascula r relief appears normal. Cardiac silhouette is unremarkable. Bony elements are intact. IMPRESSION: Unremarkable chest radiograph.
[2023-05-11 12:07] VITALS: BMI 30.6
[2023-05-11 12:10] VITALS: BP 107/77; PULSE 87; RESP 17; TEMP 36.6; O2SAT 100
--- NOTE | 2023-05-11 12:50 | XR_ITS ---
WS: [id number] Exam: XR soft tissue neck [id number] Date/Time of Exam: 05/11/2023 12:54 PM Reason For Exam: SOB/neck swelling/tightness Prevertebral soft tissues are not widened or displaced. The airway is unremarkable in appearance. Vis ualized bony elements of the C-spine are intact. IMPRESSION: 1. Unremarkable soft tissues of the neck.
--- NOTE | 2023-05-11 12:51 | ED_ITS ---
HPI - SOB/Dyspnea General: Chief Complaint: Shortness of Breath/Dyspnea Stated Complaint: SOB Time Seen by Provider: 05/11/23 12:38 Source: patient Mode of arrival: ambulatory Limitations: no limitations History of Present Illness: HPI Narrative: Patient is a nice 32-year-old female presents to ED today with a complaint of feeling like she cannot take a deep breath. Patient states symptoms have been present over the past 2 days or so. She feels like she has a lot of pressure to the top of her chest and into her neck causing her to not be able to fully inhale. She feels like her neck is swollen and is constricting. She has not had any recent URI-like illness. She has no history of asthma. She has no nasal congestion, rhinorrhea, sinus pain/pressure, or cough. She feels like her neck may be swollen. Patient states she was seen at [facility] on Thursday and told she was hyperventilating and has GERD. Patient states she has never had acid reflux before (apart from during ). Symptoms are worse with exertion and lying flat. MD elicited complaint: shortness of breath Onset (ago): day(s) Timing: constant Severity: moderate Exacerbating factors: lying flat and exertion Relieving factors: nothing Associated symptoms: Reports chest pain (pressure to upper part of chest and neck); Deny abdominal pain, chest congestion, fever(s), hemoptysis, lightheadedness, nausea, orthopnea, palpitations, syncope or vomiting Treatment prior to arrival: none Related Data: Home oxygen amount: none Review of Systems Const: Denies: fever(s), chills, body aches, fatigue or malaise Eyes: Denies: change in vision or blurry vision ENMT: Denies: odynophagia, nasal discharge, nasal congestion or sinus pain Card: Reports: chest pain (pressure to upper part of chest and neck); Denies: palpitations, irregular heart rhythm, edema, swelling of feet/ankles, lightheadedness, syncope, pre-syncope, dyspnea on exertion, orthopnea, leg pain with exertion or acrocyanosis Resp: Reports: dyspnea; Denies: productive cough, non-productive cough, wheezing, stridor, pain on inspiration, change in phlegm color, hemoptysis or chest congestion GI: Denies: abdominal pain, nausea, vomiting, heartburn or diarrhea : Denies: dysuria Musc: Reports: neck pain (feels like her neck is swollen); Denies: back pain or joint pain Skin/Breast: Denies: rash Neuro: Denies: headache(s), numbness in extremities, weakness in extremities or sensory changes PFSH ED PFSH: Medical History Aftercare following surgery of the genitourinary system Aftercare following surgery of the genitourinary system Aftercare following surgery of the genitourinary system Patient is status post D&C via MyoSure 2 weeks ago refers she started with heavy vaginal bleeding. Denies pain and fever. She was counseled regarding the benign pathology report. Follow-up in 4 delivery delivered 08/26/2014--Low transverse section. Performed due to malpresentation of twins (breech/breech). Performed by Dr. Phi Tyler at [facility] in [place], [place]. Confirmed low transverse incision with 2 layer closure of the uterus. delivery delivered 01/22/2017--Performed per Dr. Acevedo at [facility] in [place], [place] Menorrhagia Patient was counseled regarding heavy menstrual bleeding. The most common causes of excessive menstrual bleeding are: anovulation, abnormal growths in the uterus, such as polyps or fibroids, and bleeding disorders. Evaluation entails blood tests to look for a bleeding disorder, anemia, or thyroid disease, a pelvic ultrasound, which can detect endometrial polyps and fibroids, an endometrial biopsy or a hysteroscopy. Treatment options are medical treatment and surgical treatment. But the best treatment of heavy menstrual bleeding will depend on the cause of the bleeding and the patient?s preferences with need to prevent or desire to have children in the future. Medical treatment can be Hormonal control, (the pill, skin patch, vaginal ring, shot, hormonal IUD, and implant), Antifibrinolytic medicines, Non-steroidal anti-inflammatory drugs, Progestin pills, GnRH agonists. Surgical treatment also depends on the cause of AUB and may be myomectomy, endometrial ablation and a hysterectomy. A patient education handout about menorrhagia was given. Migraine Patient denies medical problems Denies history of: diabetes, high blood pressure, heart, lung, liver, kidney, bleeding problems, or clotting problems. Uterine polyp The patient was counseled regarding the findings of endometrial polyp, in the pelvic US. Endometrial polyps are growths that usually appear on the endometrium and could be the cause of abnormal uterine bleeding. Polyps are usually redd-red to reddish-purple or grayish-white. They vary in size. Endometrial polyps in her age group are usually not cancerous (benign) and can occur alone or in groups. Because rare types of cancerous conditions can look like polyps, all polyps should be removed and examined for signs of cancer. However, most polyps need to be removed to treat any symptoms and to evaluate the tissue for signs of cancer, which is rare. Endometrial polyps are removed surgically. The polyp or polyps are then sent to a laboratory for examination. She was counseled regarding the need of a hysteroscopy with D&C and polypectomy for further evaluation. She elected to proceed with the procedure was scheduled for next Thursday. The patient was informed of the risks and benefits of a hysteroscopic polypectomy with dilation and curettage via MyoSure. Risks included but were not limited to bleeding, infection, injury to the vulva, vagina, or cervix, and uterine perforation. The patient expressed understanding of the risks involved, all questions were answered, and the patient consented to the procedure and signed informed consent Surgical History H/O: hysterectomy 12/21/2019- LAV per Dr. Acevedo at [facility] History of ankle surgery Left ankle x 2 History of dilation and curettage History of laparoscopy Abdominal growing in the distal end of the omentum, requiring excision of portion of the omentum. Surgery performed by Dr. Phi Tyler at [facility] in [place], [place]. D&C History of tubal ligation 01/22/2017- with per Dr. Acevedo at [facility] Status post hysteroscopic polypectomy 06/15/2019 Family History Grandmother Hyperlipidemia maternal Hypertension maternal Stroke maternal Father Heart disease Leukemia Grandfather Heart disease maternal Colon cancer maternal Social History Smoking and tobacco/nicotine status: never used tobacco/nicotine Alcohol intake: current Alcohol intake frequency: holidays/special occasions only Alcohol type: wine and hard liquor Substance/Drug Use: never Female Reproductive History: Para: 3 Spontaneous abortions: Yes (3) Physical Exam Const: COMMON NORMALS: no acute distress, average body habitus, patient orien cynthia x3, no limitations, healthy appearing, alert and well nourished GENERAL APPEARANCE: cooperative ORIENTATION/CONSCIOUSNESS: Yes awake, Yes oriented to person, Yes oriented to place and Yes oriented to time HENMT: COMMON NORMALS: normocephalic and atraumatic HEAD & SCALP: normal to inspection, normocephalic and atraumatic FACE & SINUS: normal facial exam MOUTH: lip normal and tongue normal; no drooling THROAT: posterior oropharynx normal Neck/C-Spine: COMMON NORMALS: full ROM, no lymphadenopathy, supple, no meningeal signs, no JVD and No carotid bruits GENERAL: No anterior neck swelling and No submandibular swelling OTHER: reporting her anterior neck feels sore and swollen Chest: COMMONS NORMALS: normal inspection of the chest and normal palpation of entire chest wall Resp: COMMON NORMALS: normal respiratory effort and clear to auscultation bilaterally AUSCULTATION: clear to auscultation bilaterally Cardio: COMMON NORMALS: no JVD, regular rate and regular rhythm RATE: regular rate RHYTHM: regular rhythm GI: COMMON NORMALS: Normal to inspection, nondistended, normoactive bowel sounds present, Soft to palpation, non-tender, No hepatosplenomegaly present and no masses PALPATION: Yes Soft to palpation and Yes No hepatosplenomegaly present : COMMON NORMALS: Yes no CVA tenderness BLADDER/KIDNEY EXAM: Yes no CVA tenderness Back/Pelvis: COMMON NORMALS: no CVA tenderness and thoracic and lumbar spine normal to inspection Extremity: COMMON NORMALS: normal to inspection GENERAL: Yes normal exam except as noted Neuro: JUNE COMA SCALE: document GCS findings Spivey coma scale eye opening: Spontaneous Spivey coma scale verbal response: Orientated June coma scale motor response: Obey commands Spivey coma scale total score: 15 COMMON NORMALS: patient oriented x3, moves all extremities, no focal motor deficits and no sensory deficits noted SENSORIUM/ORIENTATION: Yes alert, Yes oriented to person, Yes oriented to place and Yes oriented to time MENINGEAL SIGNS: Yes no meningeal signs Skin: COMMON NORMALS: no rashes or lesions noted GENERAL SKIN EXAM: no rashes or lesions noted Course Vital Signs: Vital signs: Vital Signs Temperature 97.8 F 05/11/23 12:10 Pulse Rate 76 05/11/23 15:48 Respiratory Rate 17 05/11/23 12:10 Blood Pressure 107/77 05/11/23 12:10 Pulse Oximetry 98 05/11/23 15:48 Oxygen Delivery Me thod Room Air 05/11/23 15:48 MDM - SOB/Dyspnea Medical Decision Making Patient here with complaints of SOB and feeling like she cannot take a deep breath. She feels like her neck is swollen and constricting. Clinically she does appear winded. Her vital signs are stable. She is satting 100% on room air. Patient's blood work including BNP and D-dimer are unremarkable. Her CXR and XR soft tissue are negative. CT obtained to evaluate for any type of airway obstruction. This was negative. Respiratory panel negative. At this time I do not have a clear explanation for patient's symptoms. I certainly feel she is stable to follow-up with her primary care provider in the next 24 to 48 hours. Return ED precautions given. Lab Data 05/11/23 13:00 05/11/23 13:00 Labs/Radiology: Laboratory Results WBC 9.65 10^3/uL (3.29-11.43) 05/11/23 13:00 RBC 4.94 10^6/uL (3.85-5.65) 05/11/23 13:00 Hgb 14.00 g/dL (11.27-16.99) 05/11/23 13:00 Hct 41.7 % (36-47) 05/11/23 13:00 MCV 84.4 fl (85-98) L 05/11/23 13:00 MCH 28.3 pg (27-33) 05/11/23 13:00 MCHC 33.6 g/dL (30-55) 05/11/23 13:00 RDW 11.9 % (12.1-15.1) L 05/11/23 13:00 Plt Count 336 10^3/cmm (157-399) 05/11/23 13:00 MPV 8.6 fL (7.4-10.4) 05/11/23 13:00 Neut % (Auto) 66.2 % 05/11/23 13:00 Lymph % (Auto) 25.2 % 05/11/23 13:00 Mckean % (Auto) 5.5 % 05/11/23 13:00 Eos % (Auto) 2.1 % 05/11/23 13:00 Baso % (Auto) 0.6 % 05/11/23 13:00 Neut # (Auto) 6.39 10^3/uL (1.8-7.7) 05/11/23 13:00 Lymph # (Auto) 2.4 10^3/uL (0.8-4.8) 05/11/23 13:00 Mckean # (Auto) 0.5 10^3/uL (0.2-0.9) 05/11/23 13:00 Eos # (Auto) 0.2 10^3/uL (0.0-0.8) 05/11/23 13:00 Baso # (Auto) 0.1 10^3/uL (0.0-0.1) 05/11/23 13:00 Nucleated RBC % (auto) 0 % 05/11/23 13:00 Nucleated RBCs # 0.0 /100WBC 05/11/23 13:00 D-Dimer <= 0.27 ug/mLFEU (0-0.59) 05/11/23 13:00 Sodium 138 mmol/L (136-145) 05/11/23 13:00 Potassium 3.8 mmol/L (3.5-5.1) 05/11/23 13:00 Chloride 105 mmol/L (98-107) 05/11/23 13:00 Carbon Dioxide 25 mmol/L (22-29) 05/11/23 13:00 Anion Gap 11.8 (5-19) 05/11/23 13:00 BUN 11 mg/dL (6-20) 05/11/23 13:00 Creatinine 0.7 mg/dL (0.5-0.9) 05/11/23 13:00 GFR Calculation 96.4 mL/min (90-130) 05/11/23 13:00 Glucose 90 mg/dL (65-115) 05/11/23 13:00 Calculated Osmolality 285 mOsm/kg (285-295) 05/11/23 13:00 Calcium 9.8 mg/dL (8.5-10.5) 05/11/23 13:00 Total Bilirubin 0.3 mg/dL (0.15-1.2) 05/11/23 13:00 AST 16 U/L (0-32) 05/11/23 13:00 ALT 21 U/L (0-33) 05/11/23 13:00 Alkaline Phosphatase 70 U/L (35-105) 05/11/23 13:00 NT-Pro-B Natriuret Pep 47 pg/mL (0-125) 05/11/23 13:00 Total Protein 7.2 g/dL (6.6-8.7) 05/11/23 13:00 Albumin 4.7 g/dL (3.5-5.2) 05/11/23 13:00 Globulin 2.5 g/dL (1.3-4.6) 05/11/23 13:00 TSH 5.65 uIU/mL (0.27-4.20) H 05/11/23 13:00 Nasal Influ A H1 2009 PCR Not detected (NOT DETECT) 05/11/23 13:00 Adenovirus (PCR) Not detected (NOT DETECT) 05/11/23 13:00 C. pneumoniae DNA (PCR) Not detected (NOT DETECT) 05/11/23 13:00 Coronavirus 229E (PCR) Not detected (NOT DETECT) 05/11/23 13:00 Human Metapneumovir PCR Not detected (NOT DETECT) 05/11/23 13:00 Influenza A (H1) PCR Not detected (NOT DETECT) 05/11/23 13:00 Influenza A (H3) PCR Not detected (NOT DETECT) 05/11/23 13:00 Influenza Type A (PCR) Not detected (NOT DETECT) 05/11/23 13:00 Influenza Type B (PCR) Not detected (NOT DETECT) 05/11/23 13:00 M. pneumoniae (PCR) Not detected (NOT DETECT) 05/11/23 13:00 Parainfluenza 1 (PCR) Not detected (NOT DETECT) 05/11/23 13:00 Parainfluenza 2 (PCR) Not detected (NOT DETECT) 05/11/23 13:00 Parainfluenza 3 (PCR) Not detected (NOT DETECT) 05/11/23 13:00 Parainfluenza 4 (PCR) Not detected (NOT DETECT) 05/11/23 13:00 RSV Type A (PCR) Not detected (NOT DETECT) 05/11/23 13:00 RSV Type B (PCR) Not detected (NOT DETECT) 05/11/23 13:00 Entero/Rhino (PCR) Not detected (NOT DETECT) 05/11/23 13:00 SARS-CoV-2 (PCR) Not detected (NOT DETECT) 05/11/23 13:00 All radiology interpretation(s) finalized by discharge Discharge Plan Discharge Patient Disposition: Home Clinical Impression: Shortness of breath Condition: Stable Prescriptions: No Action Botox 100 unit recon soln 155 unit IM ONCE Qty: 2 0RF Rx Instructions: Use FDA protocol for migraine prednisone 20 mg tablet 20 mg PO BID PRN (Reason: Rash) Discharge Orders: Discharge ED (Routine); Ordered 05/11/23 Ordered By: Qing Gordon Referrals: Reyna Kerr FNP [Primary Care Provider] - Coding Level of Care Code ED Software Quality Assurance Engineer for [facility]
[2023-05-11 13:07] LABS: Basophils # 0.1 10^3/uL (0.0-0.1); Basophils % 0.6 %; Eosinophils # 0.2 10^3/uL (0.0-0.8); Eosinophils % 2.1 %; Hematocrit 41.7 % (36-47); Lymphocytes # 2.4 10^3/uL (0.8-4.8); Lymphocytes % 25.2 %; Mean Corpuscular HGB Conc 33.6 g/dL (30-55); Mean Corpuscular Hemoglobin 28.3 pg (27-33); Mean Corpuscular Volume 84.4 fl (85-98); Mean Platelet Volume 8.6 fL (7.4-10.4); Monocytes # 0.5 10^3/uL (0.2-0.9); Monocytes % 5.5 %; Neutrophils # 6.39 10^3/uL (1.8-7.7); Neutrophils % 66.2 %; Nucleated Red Blood Cells % 0 %; Platelet Count 336 10^3/cmm (157-399); Red Blood Count 4.94 10^6/uL (3.85-5.65); Red Cell Distribution Width 11.9 % (12.1-15.1); White Blood Count 9.65 10^3/uL (3.29-11.43)
[2023-05-11 13:25] LABS: D Dimer <= 0.27 ug/mLFEU (0-0.59)
[2023-05-11 13:41] LABS: Alanine Aminotransferase 21 U/L (0-33); Albumin Level 4.7 g/dL (3.5-5.2); Alkaline Phosphatase 70 U/L (35-105); Anion Gap 11.8 (5-19); Aspartate Amino Transferase 16 U/L (0-32); Blood Urea Nitrogen 11 mg/dL (6-20); Calcium 9.8 mg/dL (8.5-10.5); Carbon Dioxide 25 mmol/L (22-29); Chloride 105 mmol/L (98-107); Globulin 2.5 g/dL (1.3-4.6); Glomerular Filtration Rate 96.4 mL/min (90-130); Glucose 90 mg/dL (65-115); NT Pro B Type Natriuretic Pept 47 pg/mL (0-125); Osmolality Calculated 285 mOsm/kg (285-295); Potassium 3.8 mmol/L (3.5-5.1); Sodium 138 mmol/L (136-145); Total Bilirubin 0.3 mg/dL (0.15-1.2); Total Protein 7.2 g/dL (6.6-8.7)
--- NOTE | 2023-05-11 13:46 | CT_ITS ---
WS: [id number] CT NECK WITH CONTRAST HISTORY: swelling, pain, sob/trouble breathing TECHNIQUE: Contiguous 2 mm axial images are performed through the neck with intravenous contrast. Sag ittal and coronal reformats are also submitted. All CT scans at [facility] use at least one o f these dose optimization techniques: automated exposure control; mA and/or kV adjustment per patient size (includes targeted exams where dose is matched to clinical indication); or iterative reconstruc tion. CONTRAST: CONTRAST: Omnipaque 350; 100 mL IV. DLP: 215.76 mGy.cm COMPARISON: None available. Nasopharynx, oropharynx, hypopharynx and larynx are unremarkable. No soft tissue masses or abnormal e nhancement. Very minimal hyperemia involving the [place] tonsils. No mass or abscess. No inflammatio n in the adjacent parapharyngeal fat. No compromise of the airway. Torus tubarius and fossa of Rosenmuller and parapharyngeal fat are normal. There are small cervical chain lymph nodes identified. Normal fatty han remain. No significant thyroid enlargement. Parotid glands and submandibular glands are negative. No osseous abnormalities. Visualized portions of the skull base demonstrate no abnormalities. Orbits and globes are within norm al limits. No soft tissue masses. Visualized paranasal sinuses and mastoid air cells are normal. Lung apices are clear. IMPRESSION: Unremarkable neck CT. No neck mass. No goiter. No significant adenopathy.
[2023-05-11 14:24] LABS: Thyroid Stimulating Hormone 5.65 uIU/mL (0.27-4.20)
[2023-05-11] MEDS: iohexol 350 mg/mL 500 mL Btl (per mL) IV (14:40)
[2023-05-11 14:53] LABS: Adenovirus Not Detected (NOT DETECT); Chlamydia Pneumoniae Not Detected (NOT DETECT); Coronavirus 229E,HKU1,NL63,OC4 Not Detected (NOT DETECT); Human Metapneumovirus Not Detected (NOT DETECT); Human Rhinovirus/Enterovirus Not Detected (NOT DETECT); Influenza A Not Detected (NOT DETECT); Influenza A H1 Not Detected (NOT DETECT); Influenza A H1-2009 Not Detected (NOT DETECT); Influenza A H3 Not Detected (NOT DETECT); Influenza B Not Detected (NOT DETECT); Mycoplasma Pneumoniae Not Detected (NOT DETECT); Parainfluenza Virus Type 1 Not Detected (NOT DETECT); Parainfluenza Virus Type 2 Not Detected (NOT DETECT); Parainfluenza Virus Type 3 Not Detected (NOT DETECT); Parainfluenza Virus Type 4 Not Detected (NOT DETECT); Respiratory Syncytial Virus A Not Detected (NOT DETECT); Respiratory Syncytial Virus B Not Detected (NOT DETECT); SARS-COV-2 Not Detected (NOT DETECT)
[2023-05-11 15:48] VITALS: PULSE 76; O2SAT 98
== END 2023-05-11 15:55 | disposition home or self-care (01) ==
PROVIDERS: Emergency Provider Physician Assistant; PCP Nurse Practitioner Family
DX: R06.02 Shortness of breath (principal); Z11.52 Encounter for screening for COVID-19
CPT/HCPCS: 36415; 70360; 70491; 71045; 80053; 83880; 84443; 85025; 85378; 87486; 87581; 87633; 93005; 99285; Q9967

== ENCOUNTER → 2023-11-18 14:50 | Outpatient (BNVA) | payer BC, SELFPAY | PROVIDERS: PCP Nurse Practitioner Family; Visit Provider Specialist | DX: G62.9 Polyneuropathy, unspecified (principal); R20.0 Anesthesia of skin; R20.2 Paresthesia of skin; G83.34 Monoplegia, unspecified affecting left nondominant side; G25.81 Restless legs syndrome | CPT/HCPCS: 36415; 82085; 82550; 82607; 82728; 83520; 83540; 83550; 84439; 84443; 85651; 86160; 86162; 86200; 86235; 86255; 86376; 86431 ==

== ENCOUNTER 2023-12-16 10:00 | Outpatient (CLI) | payer BC, SELFPAY ==
--- NOTE | 2023-12-16 10:15 | MR_ITS ---
WS: [id number] MRI CERVICAL SPINE NONCONTRAST HISTORY: G62.9 - Polyneuropathy, unspecified COMPARISON: None available. Technique: Multiplanar, multisequence noncontrast imaging of the cervical spine. Normal cervical alignment with no compression fracture or significant disc space narrowing. Signal within the cervical cord is normal. Visualized posterior fossa is unremarkable. Craniocervical junction, C1 and C2 relationship, odontoid process and soft tissues are normal. C2-C3: Normal. C3-C4: Normal. C4-C5: Very subtle shallow central disc protrusion with no stenosis. C5-C6: Mild osteophytic ridging. No stenosis. C6-C7: Mild disc bulging and osteophytic ridging. No stenosis. C7-T1: Normal. Paraspinal soft tissue are normal. MR/MR cervical spin wo con* [id number] IMPRESSION: 1. No significant cervical spine stenosis or disc protrusions. 2. Very shallow central disc protrusion at C4-5. No stenosis. 3. Very minimal osteophytosis at C5-6 and C6-7. 4. Normal signal in the cervical cord.
--- NOTE | 2023-12-16 11:00 | MR_ITS ---
WS: [id number] MRI LUMBAR SPINE NONCONTRAST HISTORY: G62.9 - Polyneuropathy, unspecified COMPARISON: 02/14/2020 TECHNIQUE: Sagittal and axial multisequence imaging is submitted. Normal lumbar alignment with no compression fractures or marrow edema. Disc spaces and vertebral body heights are well-preserved. Conus terminates normally at L1-2 disc level. L1-L2: Small amount of fluid in the RIGHT facet joint is new. No stenosis. L2-L3: Mild facet arthritis. No stenosis. L3-L4: Mild diffuse annular disc bulging and facet arthritis. Mild disc encroachment upon the subarti cular recesses demonstrates mild progression since the prior examination. Slightly greater disc conta ct on the traversing LEFT L4 nerve root. Very mild bilateral foraminal encroachment. L4-L5: Mild annular disc bulging with mild ligamentum flavum and facet arthritis. Mild disc encroachm ent upon the subarticular recesses and the traversing nerve roots. Similar to the prior study. Small amount of fluid in the facet joints. L5-S1: Mild disc bulging. Very slight disc contact on the S1 nerve roots, RIGHT greater than LEFT. No stenosis. Paravertebral soft tissues are normal. MR/MR lumbar spine wo con* [id number] IMPRESSION: 1. Minimal progression of degenerative disc disease since 02/14/2020. 2. No high-grade stenosis. 3. L3-4: Mild disc encroachment upon the subarticular recesses and traversing L4 nerve roots, LEFT greater than RIGHT. 4. L4-5: Mild disc encroachment upon the subarticular recesses and traversing L5 nerve roots. 5. Minimal disc contact on the S1 nerve roots, RIGHT greater than LEFT.
== END 2023-12-16 10:01 | disposition home or self-care (01) ==
LOC: RAD 10:02
PROVIDERS: PCP Nurse Practitioner Family; Visit Provider Specialist
DX: M50.221 Other cervical disc displacement at C4-C5 level (principal); M25.78 Osteophyte, vertebrae; G62.9 Polyneuropathy, unspecified; G83.34 Monoplegia, unspecified affecting left nondominant side; R20.0 Anesthesia of skin; R20.2 Paresthesia of skin
CPT/HCPCS: 72141; 72148

== ENCOUNTER → 2024-07-01 10:28 | Outpatient (BNVA) | payer BC, SELFPAY | PROVIDERS: PCP Nurse Practitioner Family; Referring Provider Nurse Practitioner Family; Visit Provider Internal Medicine | DX: E03.9 Hypothyroidism, unspecified (principal) | CPT/HCPCS: 36415; 83516; 84439; 84443; 84480; 86376; 86800 ==

== ENCOUNTER 2024-07-12 14:46 | Outpatient (CLI) | payer BC, SELFPAY ==
--- NOTE | 2024-07-12 15:15 | US_ITS ---
WS: [id number] THYROID ULTRASOUND HISTORY: thyromegaly COMPARISON: 11/29/2020 Right lobe: 1.4 cm x 1.2 cm x 3.6 cm (w x ap x l). Volume: 2.7 cm3. Normal size and echotexture. No significant are dominant nodules are present. Left lobe: 1.5 cm x 0.9 cm x 3.5 cm (w x ap x l). Volume: 2.2 cm3. Normal size and echotexture. No significant or dominant nodules are present. Isthmus: 0.3 cm. US/US thyroid [id number] IMPRESSION: Normal thyroid ultrasound.
== END 2024-07-12 14:47 | disposition home or self-care (01) ==
LOC: RAD 14:47
PROVIDERS: PCP Nurse Practitioner Family; Visit Provider Internal Medicine
DX: E01.0 Iodine-deficiency related diffuse (endemic) goiter (principal)
CPT/HCPCS: 76536

== ENCOUNTER 2024-10-07 09:59 | Outpatient (CLI) | payer BC, SELFPAY ==
[2024-10-07 11:26] LABS: Thyroid Stimulating Hormone 3.37 uIU/mL (0.27-4.20)
[2024-10-08 04:40] LABS: T3 Total 110 ng/dL (76-181)
== END 2024-10-07 10:00 | disposition home or self-care (01) ==
LOC: LAB 10:00
PROVIDERS: PCP Nurse Practitioner Family; Visit Provider Internal Medicine
DX: L65.9 Nonscarring hair loss, unspecified (principal); E03.9 Hypothyroidism, unspecified; R53.83 Other fatigue
CPT/HCPCS: 36415; 84443; 84480

== ENCOUNTER 2025-05-25 09:24 | Oncology outpatient (recurring) (ONCR) | payer BC, SELFPAY ==
[2025-05-25 09:50] VITALS: BP 88/61; PULSE 81; RESP 16; TEMP 36.7; O2SAT 97
[2025-05-25] MEDS: diphenhydrAMINE 50 mg/mL SDV 1mL 25 MG IVP (10:13)
[2025-05-25] MEDS: ondansetron 2 mg/ML SDV 2 mL 4 MG IVP (10:16)
--- NOTE | 2025-05-25 11:38 | PC.NURSE ---
Patient is at the infusion center receiving the DHE protocol for a migraine. After receiving 2 doses of DHE (1 mg) patient's migraine intensified, she started having a burning sensation behind her eyes and in the back of her head, and her nausea intensified. Patient stated these side effects are the same side effects she has when she takes Triptans, which she is allergic to. This nurse notified Dr. David of patient's side effects. Dr. David ordered to discontinue the DHE, add DHE to patient's allergy list, and start the Depacon infusion in the DHE protocol. Dr. David stated if patient feels relief from the first Depacon infusion, to give the second Depacon infusion. If patient still has a migraine after the second Depacon infusion, give the Toradol and notify Dr. David. Patient notified of Dr. David's orders and is in agreement.
[2025-05-25 14:07] VITALS: BP 101/63; PULSE 81; RESP 16; TEMP 36.7; O2SAT 98
--- NOTE | 2025-05-25 14:09 | PC.NURSE ---
Patient received 1st Depacon infusion per Dr. David's orders, which brought her pain down to a 5/10 on the numeric pain scale. This nurse waited 15 minutes after the first Depacon infusion and then administered the 2nd Depacon infusion, which brought patient's pain down to a 2/10 on the numeric pain scale. Patient stated she wanted the Toradol to try and get her pain level down even more. This nurse administered Toradol 30mg IVP to patient. This nurse reassessed patient's pain 20 minutes after patient received the Toradol and patient stated her pain was a 1/10 on the numeric scale. Patient was satisfied with this pain level and was discharged.
== END 2025-06-18 23:59 | disposition home or self-care (01) ==
PROVIDERS: PCP Nurse Practitioner Family; Visit Provider Specialist
DX: G43.711 Chronic migraine without aura, intractable, with status migrainosus (principal); Z79.899 Other long term (current) drug therapy
CPT/HCPCS: 96365; 96366; 96375; J1110; J1200; J1885; J2405; J3490